=== PATIENT | female | born 1980 ===

== ENCOUNTER 2018-08-18 16:23 | Emergency (ER) | payer OTHER ==
[~2018-08-18] VITALS: Ht 160 cm; Wt 50.0 kg
[2018-08-18 16:34] VITALS: Ht 160 cm; Wt 50.0 kg
--- NOTE | 2018-08-18 16:40 | ERD ---
ER Documentation Chief Complaint Chief Complaint [facility] C/O AP HX OF KIDNEY STONES HPI The patient is a 37-year-old female, presenting to ER for medical clearance. The patient complains of right-sided back pain for the last couple days, she has been under custody for the last 2 days and was transferred to the ER from the [facility]. She has similar symptoms previously from kidney stone, denies headache, neck pain, chest pain, dyspnea, vomiting, dysuria, complains of constipation. She was admitted to the hospital under Freddy Lazo on 07/31/18 due to right kidney stone, had a stent and removal of the stent on the right ureter Past medical history: History of right ureteral stone ROS All systems reviewed and are negative except as per history of present illness. Medications Home Meds Active Scripts Ibuprofen* (Motrin*) 600 Mg Tab, 600 MG PO Q6H PRN for PAIN AND OR ELEVATED TEMP, #30 TAB Prov:WILBERTO LISA MD 08/18/18 Allergies Allergies: Coded Allergies: Penicillins (Verified Allergy, Unknown, 08/18/18) amoxicillin (Verified Allergy, Unknown, 08/18/18) erythromycin base (Verified Allergy, Unknown, 08/18/18) hydrocodone (Verified Allergy, Unknown, 08/18/18) Physical Exam Vitals Vital Signs Date Temp Pulse Resp B/P (MAP) Pulse Ox O2 O2 Flow FiO2 Time Delivery Rate 08/18/18 98.0 79 20 116/71 100 Room Air 19:47 (86) 08/18/18 98.0 82 19 110/65 99 Room Air 17:22 (80) 08/18/18 98.9 98 17 107/66 99 16:34 (80) Physical Exam Const: No acute distress. Head: Atraumatic. Eyes: Normal Conjunctiva. ENT: Normal External Ears, Nose and Mouth. Neck: Full range of motion. No meningismus. Resp: Clear to auscultation bilaterally. Cardio: Regular rate and rhythm. Abd: Soft, non distended, normal bowel sounds, minimal right flank discomfort, no right lower quadrant, right upper quadrant, rigidity, rebound, CVA tenderness Skin: No petechiae or rashes. Back: No midline or flank tenderness. Ext: No cyanosis, or edema. Neur: Awake and alert. No focal deficit Psych: Normal Mood and Affect. Result Diagram: 08/18/18 1715 08/18/18 1715 Results 24 hrs Laboratory Tests Test 08/18/18 17:15 08/18/18 17:46 08/18/18 18:21 White Blood Count 4.7 10^3/ul Red Blood Count 4.81 10^6/ul Hemoglobin 13.7 g/dl Hematocrit 43.3 % Mean Corpuscular Volume 90.0 fl Mean Corpuscular Hemoglobin 28.5 pg Mean Corpuscular 31.6 g/dl Hemoglobin Concent Red Cell Distribution Width 14.7 % Platelet Count 591 10^3/UL Mean Platelet Volume 9.3 fl Immature Granulocytes % 0.400 % Neutrophils % 61.2 % Lymphocytes % 27.4 % Monocytes % 8.5 % Eosinophils % 1.9 % Basophils % 0.6 % Nucleated Red Blood Cells % 0.0 /100WBC Immature Granulocytes # 0.020 10^3/ul Neutrophils # 2.9 10^3/ul Lymphocytes # 1.3 10^3/ul Monocytes # 0.4 10^3/ul Eosinophils # 0.1 10^3/ul Basophils # 0.0 10^3/ul Nucleated Red Blood Cells # 0.0 10^3/ul Sodium Level 142 mmol/L Potassium Level 4.3 mmol/L Chloride Level 101 mmol/L Carbon Dioxide Level 32 mmol/L Anion Gap 9 Blood Urea Nitrogen 14 mg/dl Creatinine 0.64 mg/dl Est Glomerular Filtrat Rate mL/min > 60 mL/min Glucose Level 94 mg/dl Calcium Level 9.5 mg/dl Total Bilirubin 0.2 mg/dl Direct Bilirubin 0.00 mg/dl Indirect Bilirubin 0.2 mg/dl Aspartate Amino Transf (AST/SGOT) 34 IU/L Alanine 30 IU/L Aminotransferase (ALT/SGPT) Alkaline Phosphatase 87 IU/L Total Protein 8.1 g/dl Albumin 4.4 g/dl Globulin 3.70 g/dl Albumin/Globulin Ratio 1.18 Lipase 73 U/L Bedside Urine pH (LAB) 5.5 Bedside Urine Protein (LAB) Negative Bedside Urine Glucose (UA) Negative Bedside Urine Ketones (LAB) Trace Bedside Urine Blood Trace-lysed Bedside Urine Nitrite (LAB) Negative Bedside Urine Leukocyte Esterase Negative (L POC Beta HCG, Qualitative NEGATIVE Current Medications Medications Dose Sig/Gera Start Time Status Last (Trade) Ordered Route PRN Stop Time Admin Dose Reason Admin Ketorolac 30 mg ONCE STAT 08/18/18 DC 08/18/18 Tromethamine IV 18:26 18:54 (Toradol) 08/18/18 18:51 Procedures/MDM MEDICAL MAKING DECISION: The patient is a 47-year-old female, presenting with acute right flank pain, most likely acute renal colic. She was treated with Toradol 30 mg IV for pain with good response, is stable for outpatient follow- up. She already had [address] scans within the last 2 weeks, I do not think she needs another CT scan The differential diagnoses considered include but are not limited to cholelith iasis, cholecystitis, choledocholithiasis, cholangitis, pancreatitis, hepatitis, gastritis, peptic ulcer disease, gastric ulcer, appendicitis, cystitis, diverticulitis, partial small bowel obstruction. Departure Diagnosis: Primary Impression: Right flank pain Condition: Good Comments She was discharged with Motrin I discussed the findings with the patient. I advised the patient to follow-up with the [facility] in am and return if any concern. Disclaimer: Inadvertent spelling and grammatical errors are likely due to EHR/dictation software use and do not reflect on the overall quality of patient care. Also, please note that the electronic time recorded on this note does not necessarily reflect the actual time of the patient encounter. WILBERTO LISA MD Aug 18, 2018 16:40
[2018-08-18] MEDS ORDERED: KETOROLAC 30 MG INJ IV STA (18:26)
[2018-08-18] MEDS ORDERED: IBUP-1542 PO (19:28)
[2018-08-18 19:47] VITALS: BP 116/71; PULSE 79; RESP 20
== END 2018-08-18 19:49 ==
LOC: E/R 16:23
DX: R10.9 Unspecified abdominal pain (principal)
CPT/HCPCS: 36415; 80053; 81003; 81025; 83690; 85025; 96374; 99284; J1885